=== PATIENT | male | born 1985 | race Asian ===

== ENCOUNTER 2022-04-27 08:41 | Outpatient (CLI) | payer BC ==
[2022-04-27] MEDS ORDERED: Iopamidol-370 76% 500 ML 1 ML ONE (15:50)
== END 2022-04-27 08:42 | disposition home or self-care (01) ==
LOC: BICCT 08:41
PROVIDERS: ATTEND Internal Medicine
DX: K59.09 Other constipation (principal); R10.32 Left lower quadrant pain
CPT/HCPCS: 74177; Q9967